=== PATIENT | female | born 1990 | race Caucasian/White ===

== ENCOUNTER 2016-09-22 20:36 | Emergency (ER) | payer SELFPAY ==
[~2016-09-22 20:36] MED LIST: FLEXERIL10 MG PO; NO MEDICATIONS; PHENERGAN25 MG PO; TYLENOL #3 PO; VOLTAREN75 MG PO
== END 2016-09-22 21:31 | disposition left against medical advice (07) ==
LOC: SED 20:36
DX: Z53.21 Procedure and treatment not carried out due to patient leaving prior to being seen by health care provider (principal)